=== PATIENT | female | born 1970 | race American Indian/Alaskan Native ===

== ENCOUNTER 2020-11-22 01:52 | Observation (INO) | payer OTHER ==
[~2020-11-22] VITALS: Ht 157.5 cm; Wt 108.2 kg
[2020-11-22 02:29] LABS: BASOPHILS ABSOLUTE AUTO 0.06 K/mm3 (0.00-0.23); BASOPHILS PERCENT AUTO 1 % (0-2); EOSINOPHILS ABSOLUTE AUTO 0.67 K/mm3 (0.00-0.68); EOSINOPHILS PERCENT AUTO 6 % (0-6); Hematocrit 45.7 % (33.0-51.0); Hemoglobin 14.2 g/dL (11.5-16.0); IMMATURE GRAN ABSOLUTE AUTO 0.05 K/mm3 (0.00-0.10); IMMATURE GRAN PERCENT AUTO 0 % (0-1); LYMPHOCYTES ABSOLUTE AUTO 1.99 K/mm3 (0.84-5.20); LYMPHOCYTES PERCENT AUTO 18 % (21-46); MONOCYTES ABSOLUTE AUTO 0.95 K/mm3 (0.16-1.47); MONOCYTES PERCENT AUTO 9 % (4-13); Mean Corpuscular HGB Conc 31.1 g/dL (31.5-36.5); Mean Corpuscular Volume 87 fL (80-100); Mean Platelet Volume 10.1 fL (9.1-12.4); NEUTROPHILS ABSOLUTE AUTO 7.48 K/mm3 (1.96-9.15); NEUTROPHILS PERCENT AUTO 67 % (41-73); Platelet Count 334 K/mm3 (150-400); RDW Coefficient Variation 14.7 % (11.7-14.2); RDW Standard Deviation 46.8 fL (35.1-46.3); Red Blood Cell Count 5.26 M/mm3 (3.80-5.20)
[2020-11-22 02:38] LABS: International Normalized Ratio 1.01; Prothrombin Time Results 10.9 Sec (9.7-11.5)
[2020-11-22 02:42] LABS: Alanine Aminotransfer (ALT/SGP 35 U/L (12-78); Albumin, Blood 3.5 g/dL (3.4-5.0); Albumin/Globulin Ratio 0.8 (0.8-1.8); Alk Phos 84 U/L (50-136); Anion Gap 7 mmol/L (6-16); Aspartate Aminotrans (AST/SGOT 19 U/L (12-37); Bilirubin, Total 0.2 mg/dL (0.1-1.0); Blood Urea Nitrogen 15 mg/dL (8-24); Bun/Creatinine Ratio 19.1 (12.0-20.0); CO2, Blood 23 mmol/L (21-32); Calcium, Blood 8.8 mg/dL (8.5-10.1); Chloride, Blood 110 mmol/L (98-108); Creatinine, Blood 0.78 mg/dL (0.40-1.00); Globulin, Blood 4.2 g/dL (2.2-4.0); Glomerular Filtration Rate >60 (60-); Glucose, Blood 99 mg/dL (70-99); Potassium, Blood 3.5 mmol/L (3.5-5.5); Sodium, Blood 140 mmol/L (136-145); Total Protein, Blood 7.7 g/dL (6.4-8.2)
[2020-11-22 04:53] LABS: CHOL/HDL RATIO 5.4; Cholesterol 209 mg/dL (50-200); HDL Cholesterol 39 mg/dL (>39); LDL/HDL RATIO 3.5; Low Density Lipoprotein Chol 137 mg/dL (0-110); Triglycerides 164 mg/dL (30-160); Very Low Density Lipoprot Chol 32 mg/dL (6-32)
--- NOTE | 2020-11-22 12:22 | NUR ---
ASSUMED CARE OF PATIENT UPON HER ARRIVAL FROM ED AT 1218. ABLE TO TRANSFER FROM W/C TO BED WITH SBA. PERRLA, HAND STRENGTH EQUAL BILATERALLY, TONGUE MIDLINE, NO FACIAL DROOP NOTED. LATHA WITH PHYSICAL THERAPY ARRIVED MOMENTS AFTER PATIENT DID, BEGAN WORKING WITH HER. LUNCH TRAY AND SPOUSE AT BEDSIDE.
--- NOTE | 2020-11-22 17:06 | NUR ---
SHIFT SUMMARY: HYPERTENSIVE 160-190/100'S, TACHYCARDIC IN LOW 100'S. RECEIVED ORDERS FOR NORVASC AND TOPROL XL, WAITING TO REASSESS BP. NEURO EXAM WNL, ONLY SLIGHT WEAKNESS IN LLE, AMBULATING WITH SBA. CEDS; NICOTINE PATCH GIVEN. DENIES N/V, NO HEADACHE. WORKING WITH PT/OT. TOLERATING PO INTAKE. PLAN IS POSSIBLE D/C HOME TOMORROW.
--- NOTE | 2020-11-22 19:15 | NUR ---
SHIFT SUMMARY: NO ACUTE CHANGES TO REPORT SINCE ASSUMING CARE FROM JACKELYN COLLINS. PT A&O; CALM AND COOPERATIVE WITH CARE. TELE IN PLACE; ST IN 100s; NO C/O CP. PT UP INDEPENDENT IN ROOM. EXPECTED D/C HOME TOMORROW 11/23. REPORT GIVEN TO ONCOMING JACKELYN.
--- NOTE | 2020-11-23 06:11 | NUR ---
SHIFT SUMMARY PATIENT ALERT AND ORIENTED. HAD NO COMPLAINTS OF PAIN OR SHORTNESS OF BREATH. PATIENT SLEPT WELL OVERNIGHT AND HAD MINIMAL NEEDS. NO ACUTE ISSUES NOTED. IV PATENT AND FLUSHED. BED IN LOWEST POSITION WITH WHEELS LOCKED. CALL LIGHT WITHIN REACH. REPORT GIVEN TO ONCOMING RN.
--- NOTE | 2020-11-23 11:17 | NUR ---
Advance Directive (AD) education conducted. Patient expresses interest in AD education. I share with her about the purpose, importance and filing process of the AD. Patient requests an AD for her spouse and herself and so I provide two AD booklets. Patient explains that they will read through the material and fill them out together. I continue to remain available to answer in questions in filling out the AD.
[2020-11-23] MEDS ORDERED: ATOR80 PO (12:17)
[2020-11-23] MEDS ORDERED: ASPI81CH PO (12:17)
[2020-11-23] MEDS ORDERED: CLOP75 PO (12:17)
[2020-11-23] MEDS ORDERED: LISI20 PO (12:18)
[2020-11-23] MEDS ORDERED: METO50ER PO (12:18)
[2020-11-23] MEDS ORDERED: Nicoderm Cq1 EAC1 TOP (12:19)
--- NOTE | 2020-11-23 12:23 | NUR ---
DISCHARGE NOTE PIV REMOVED, PAPERWORK REVIEWED, MEDS FAXED TO ED. PT MADE HER OWN PCP APPT. IS GIVING PT RIDE HOME.
== END 2020-11-23 13:09 | disposition home or self-care (01) ==
LOC: ER 01:52 → ERHOLD 01:53 → MEDS 12:15 → ENPENDDIS 11-23 11:44 → MEDS 11-23 13:09
PROVIDERS: Emergency Medicine; ADMIT Family Medicine
DX: I63.9 Cerebral infarction, unspecified (principal); G81.94 Hemiplegia, unspecified affecting left nondominant side; I10 Essential (primary) hypertension; K74.60 Unspecified cirrhosis of liver; F17.210 Nicotine dependence, cigarettes, uncomplicated; E66.01 Morbid (severe) obesity due to excess calories; Z68.41 Body mass index [BMI] 40.0-44.9, adult; Z88.6 Allergy status to analgesic agent; Z88.5 Allergy status to narcotic agent
CPT/HCPCS: 36415; 70450; 70496; 70498; 70551; 80053; 80061; 85025; 85610; 85730; 93005; 93010; 93306; 96372; 96372-59; 96374; 96375; 96376; 97112; 97116; 97161; 97165; 97530; 99291-25; A9270; G0378; J0360; J1650; J2060; Q9967